=== PATIENT | male | born 1945 | race Caucasian/White ===

== ENCOUNTER 2024-05-06 15:29 | Inpatient (IN) | payer MEDICARE, OTHER ==
[~2024-05-06] VITALS: Ht 177.8 cm; Wt 102.6 kg
[2024-05-06 15:47] VITALS: BP 164/98
[2024-05-06 15:52] VITALS: BP 164/98
[2024-05-06 16:39] LABS: BASO% 0.6 % (0-3); EOS% 6.3 % (0-8); HEMATOCRIT 43.4 % (39.0-50.0); HEMOGLOBIN 14.1 g/dl (14.0-18.0); IMMATURE GRANULOCYTES 0.1 % (0.0-5.0); LYMPH% 31.4 % (15-41); MEAN CORPUSCULAR HGB 29.3 pG CALC (26.0-32.0); MEAN CORPUSCULAR HGB CONC 32.5 g/dL CAL (32.0-36.0); MONO% 9.3 % (2-13); NEUT# 4.32 thou/uL (1.82-7.42); NEUT% 52.3 % (42-76); RED BLOOD COUNT 4.82 mill/uL (4.70-6.10); RED CELL DISTRI WIDTH 13.4 % (11.5-15.5)
[2024-05-06 16:41] LABS: URINE BILIRUBIN - DIPSTICK Negative (NEGATIVE); URINE BLOOD DIPSTICK Negative (NEGATIVE); URINE COLOR Yellow; URINE GLUCOSE - DIPSTICK Negative (NEGATIVE); URINE KETONE Negative (NEGATIVE); URINE LEUK ESTERASE Negative (NEGATIVE); URINE NITRITE - DIPSTICK Negative (Negative); URINE PH 6.5 (4.5-8.0); URINE PROTEIN - DIPSTICK Negative (NEG-TRACE); URINE SPECIFIC GRAVITY 1.015
[2024-05-06] MEDS ORDERED: ACETAMINOPHEN 325 MG/TAB PO PRN (16:45)
[2024-05-06] MEDS ORDERED: oxyCODONE 5MG/ ACETAMINOPHEN 325MG TAB PO PRN (16:45)
[2024-05-06] MEDS ORDERED: LORazepam 0.5 MG/TAB PO PRN (16:45)
[2024-05-06] MEDS ORDERED: SODIUM CHLORIDE 0.9% 10 ML SYR IV PRN (16:45)
[2024-05-06] MEDS ORDERED: Polyethylene Glycol 3350 17 GM/PKT PO PRN (16:45)
[2024-05-06] MEDS ORDERED: ALUM & MAG HYDROX-SIMETHICONE 30 ML PO PRN (16:45)
[2024-05-06] MEDS ORDERED: PROTONIX40 M2 PO (16:47)
[2024-05-06] MEDS ORDERED: TAMSULOSIN0.4 MG PO (16:48)
[2024-05-06] MEDS ORDERED: IRBESARTAN150 M1 PO (16:48)
[2024-05-06] MEDS ORDERED: CRESTOR40 MG PO (16:50)
[2024-05-06] MEDS ORDERED: BAYER ASPIRIN E81 MG PO (16:51)
[2024-05-06 16:59] LABS: ALBUMIN 4.5 g/dL (3.2-5.0); ALKALINE PHOSPHATASE 77 u/l (38-126); ANION GAP 12 (6-22 (CALC)); BILIRUBIN, TOTAL 0.8 mg/dL (0.2-1.3); BUN 20 mg/dL (8-23); BUN/CREATININE RATIO 18 (12-20 (CALC)); CARBON DIOXIDE 29 mmol/l (22-30); CHLORIDE 105 mmol/l (95-108); CREATININE 1.2 mg/dL (0.7-1.3); ESTIMATED GFR 61 ML/MIN (>=90 (CALC)); POTASSIUM 4.9 mmol/l (3.5-5.1); SGOT/AST 36 u/l (19-48); SODIUM 141 mmol/l (137-146); TOTAL PROTEIN 7.2 g/dL (6.3-8.2)
[2024-05-06 17:00] LABS: C-REACTIVE PROTEIN < 0.5 mg/dL (0-0.9)
[2024-05-06] MEDS ORDERED: CEFEPIME HYDROCHLORIDE 2 GM in SODIUM CHLORIDE 0.9% 100 ML IV SCH (18:00)
[2024-05-06 18:25] VITALS: BP 176/90
[2024-05-06 18:26] VITALS: BP 147/94
[2024-05-06] MEDS ORDERED: VANCOMYCIN HCL 1,250 MG in SODIUM CHLORIDE 0.9% 225 ML IV SCH (20:00)
[2024-05-06] MEDS ORDERED: VANCOMYCIN HCL 1 GM in SODIUM CHLORIDE 0.9% 250 ML IV SCH (20:00)
[2024-05-07] VITALS (8 sets, daily range): BP systolic 123–158; BP diastolic 76–89
[2024-05-07 05:32] LABS: ALBUMIN 3.7 g/dL (3.2-5.0); BILIRUBIN, TOTAL 0.7 mg/dL (0.2-1.3); POTASSIUM 4.3 mmol/l (3.5-5.1); TOTAL PROTEIN 6.2 g/dL (6.3-8.2)
[2024-05-07] MEDS ORDERED: CEFEPIME HYDROCHLORIDE 2 GM in SODIUM CHLORIDE 0.9% 100 ML IV SCH (06:00)
[2024-05-07] MEDS ORDERED: PANTOPRAZOLE SODIUM Sesquihydr 40 MG/TAB PO SCH (10:00)
[2024-05-07] MEDS ORDERED: TAMSULOSIN HCL 0.4 MG CAP PO SCH (10:00)
[2024-05-07] MEDS ORDERED: ASPIRIN EC 81 MG/TAB PO SCH (10:00)
[2024-05-07] MEDS ORDERED: LOSARTAN Potassium 50 MG/TAB PO SCH (10:00)
[2024-05-07] MEDS ORDERED: SODIUM CHLORIDE 0.9% 1,000 ML IV PRN (21:20)
[2024-05-08] VITALS (8 sets, daily range): BP systolic 107–161; BP diastolic 71–91
[2024-05-08] MEDS ORDERED: XALATAN 0.005%2.5 ML OU (02:03)
[2024-05-08] MEDS ORDERED: TIMOLOL 0.5%5 ML OU (02:04)
[2024-05-08 07:54] LABS: BASO% 0.6 % (0-3); EOS% 6.5 % (0-8); HEMATOCRIT 39.4 % (39.0-50.0); HEMOGLOBIN 12.7 g/dl (14.0-18.0); IMMATURE GRANULOCYTES 0.2 % (0.0-5.0); MEAN CELL VOLUME 91.6 fL CALC (80.0-100.0); MEAN CORPUSCULAR HGB 29.5 pG CALC (26.0-32.0); MEAN CORPUSCULAR HGB CONC 32.2 g/dL CAL (32.0-36.0); MONO% 10.2 % (2-13); NEUT# 3.68 thou/uL (1.82-7.42); NEUT% 56.5 % (42-76); RED BLOOD COUNT 4.3 mill/uL (4.70-6.10); RED CELL DISTRI WIDTH 13.7 % (11.5-15.5)
[2024-05-08 08:01] LABS: ALBUMIN 3.5 g/dL (3.2-5.0); BILIRUBIN, TOTAL 0.9 mg/dL (0.2-1.3); MAGNESIUM 2.1 mg/dL (1.6-2.3); POTASSIUM 4.2 mmol/l (3.5-5.1); TOTAL PROTEIN 5.9 g/dL (6.3-8.2)
[2024-05-08] MEDS ORDERED: VANCOMYCIN HCL 1,250 MG in SODIUM CHLORIDE 0.9% 225 ML IV SCH (09:00)
[2024-05-08] MEDS ORDERED: TIMOLOL MALEATE 0.5% OU SCH (09:00)
[2024-05-08] MEDS ORDERED: SODIUM CHLORIDE 0.9% 10 ML SYR ONE (10:39)
[2024-05-08] MEDS ORDERED: SODIUM CHLORIDE 0.9% 1,000 ML IV ONE (10:49)
[2024-05-08] MEDS ORDERED: STERILE WATER FOR IRRIGATION 1,000 ML BTL IR ONE (10:55)
[2024-05-08] MEDS ORDERED: BUPIVACAINE HCL PF 0.5% 30 ML VIAL ONE (10:55)
[2024-05-08] MEDS ORDERED: ACETAMINOPHEN 100 ML IV ONE (13:34)
[2024-05-08] MEDS ORDERED: LATANOPROST 2.5 ML BTL OU SCH (21:00)
[2024-05-09] VITALS (9 sets, daily range): BP systolic 106–145; BP diastolic 67–89
[2024-05-09 05:46] LABS: BASO% 0.2 % (0-3); HEMOGLOBIN 12.3 g/dl (14.0-18.0); LYMPH% 16.2 % (15-41); MEAN CELL VOLUME 93.1 fL CALC (80.0-100.0); MEAN CORPUSCULAR HGB 30.1 pG CALC (26.0-32.0); MEAN CORPUSCULAR HGB CONC 32.4 g/dL CAL (32.0-36.0); MONO% 12.1 % (2-13); NEUT# 5.76 thou/uL (1.82-7.42); NEUT% 67.5 % (42-76); RED BLOOD COUNT 4.08 mill/uL (4.70-6.10); RED CELL DISTRI WIDTH 13.5 % (11.5-15.5)
[2024-05-09 06:00] LABS: ALBUMIN 3.4 g/dL (3.2-5.0); CREATININE 0.9 mg/dL (0.7-1.3); MAGNESIUM 1.9 mg/dL (1.6-2.3); POTASSIUM 4.4 mmol/l (3.5-5.1); TOTAL PROTEIN 5.7 g/dL (6.3-8.2)
[2024-05-09] MEDS ORDERED: SODIUM CHLORIDE 0.9% 250 ML IV ONE (08:30)
[2024-05-10 05:25] LABS: BASO% 0.3 % (0-3); EOS% 3.7 % (0-8); HEMATOCRIT 36.2 % (39.0-50.0); HEMOGLOBIN 11.8 g/dl (14.0-18.0); IMMATURE GRANULOCYTES 0.2 % (0.0-5.0); LYMPH% 16.1 % (15-41); MEAN CELL VOLUME 91.2 fL CALC (80.0-100.0); MEAN CORPUSCULAR HGB 29.7 pG CALC (26.0-32.0); MEAN CORPUSCULAR HGB CONC 32.6 g/dL CAL (32.0-36.0); MONO% 15.1 % (2-13); NEUT# 5.7 thou/uL (1.82-7.42); NEUT% 64.6 % (42-76); RED BLOOD COUNT 3.97 mill/uL (4.70-6.10); RED CELL DISTRI WIDTH 13.4 % (11.5-15.5)
[2024-05-10 05:43] LABS: ALBUMIN 3.1 g/dL (3.2-5.0); BILIRUBIN, TOTAL 0.9 mg/dL (0.2-1.3); MAGNESIUM 1.9 mg/dL (1.6-2.3); TOTAL PROTEIN 5.7 g/dL (6.3-8.2)
[2024-05-10 07:51] VITALS: BP 147/79
[2024-05-10 11:03] VITALS: BP 145/85
[2024-05-10 17:02] VITALS: BP 137/79
[2024-05-10 18:43] VITALS: BP 144/72
[2024-05-11 00:04] VITALS: BP 150/80
[2024-05-11 04:21] VITALS: BP 126/79
[2024-05-11 05:21] LABS: BASO% 0.4 % (0-3); EOS% 6.2 % (0-8); HEMATOCRIT 35.6 % (39.0-50.0); HEMOGLOBIN 11.7 g/dl (14.0-18.0); IMMATURE GRANULOCYTES 0.1 % (0.0-5.0); LYMPH% 19.7 % (15-41); MEAN CORPUSCULAR HGB 29.9 pG CALC (26.0-32.0); MEAN CORPUSCULAR HGB CONC 32.9 g/dL CAL (32.0-36.0); NEUT# 4.9 thou/uL (1.82-7.42); NEUT% 60.6 % (42-76); RED BLOOD COUNT 3.91 mill/uL (4.70-6.10); RED CELL DISTRI WIDTH 13.6 % (11.5-15.5)
[2024-05-11 05:29] LABS: CREATININE 0.9 mg/dL (0.7-1.3)
[2024-05-11 05:30] LABS: ALBUMIN 3.1 g/dL (3.2-5.0); BILIRUBIN, TOTAL 0.8 mg/dL (0.2-1.3); POTASSIUM 4.1 mmol/l (3.5-5.1); TOTAL PROTEIN 5.6 g/dL (6.3-8.2)
[2024-05-11 06:44] VITALS: BP 137/75
[2024-05-11 11:27] VITALS: BP 160/79
[2024-05-11 15:19] VITALS: BP 140/73
[2024-05-11 18:52] VITALS: BP 142/84
[2024-05-11] MEDS ORDERED: ENOXAPARIN SODIUM 40 MG/0.4 ML SYR SC SCH (21:00)
[2024-05-12 00:42] VITALS: BP 129/69
[2024-05-12 04:49] VITALS: BP 159/86
[2024-05-12 05:46] LABS: BASO% 0.5 % (0-3); HEMATOCRIT 35.9 % (39.0-50.0); HEMOGLOBIN 11.7 g/dl (14.0-18.0); IMMATURE GRANULOCYTES 0.1 % (0.0-5.0); LYMPH% 20.9 % (15-41); MEAN CELL VOLUME 90.7 fL CALC (80.0-100.0); MEAN CORPUSCULAR HGB 29.5 pG CALC (26.0-32.0); MEAN CORPUSCULAR HGB CONC 32.6 g/dL CAL (32.0-36.0); MONO% 13.7 % (2-13); NEUT# 4.58 thou/uL (1.82-7.42); NEUT% 55.8 % (42-76); RED BLOOD COUNT 3.96 mill/uL (4.70-6.10); RED CELL DISTRI WIDTH 13.6 % (11.5-15.5)
[2024-05-12 06:00] LABS: ALBUMIN 3.3 g/dL (3.2-5.0); BILIRUBIN, TOTAL 0.8 mg/dL (0.2-1.3); CREATININE 0.9 mg/dL (0.7-1.3); POTASSIUM 4.1 mmol/l (3.5-5.1); TOTAL PROTEIN 5.8 g/dL (6.3-8.2)
[2024-05-12 06:34] VITALS: BP 128/71
[2024-05-12 18:22] VITALS: BP 134/87
[2024-05-12 23:58] VITALS: BP 106/73
[2024-05-13 04:01] VITALS: BP 127/76
[2024-05-13 07:03] VITALS: BP 118/72
[2024-05-13] MEDS ORDERED: VANCOMYCIN1250 MG/25 IV (08:40)
[2024-05-13] MEDS ORDERED: CEFTRIAXONE2 GM IV (08:40)
[2024-05-13] MEDS ORDERED: cefTRIAXone SODIUM 2 GM in SODIUM CHLORIDE 0.9% 100 ML IV SCH ×2 (09:30→12:00)
[2024-05-13 10:58] VITALS: BP 146/85
[2024-05-13 14:40] VITALS: BP 143/79
[2024-05-13 18:57] VITALS: BP 100/67
[2024-05-13 23:20] VITALS: BP 126/80
[2024-05-14 03:25] VITALS: BP 143/83
[2024-05-14 05:40] LABS: ALBUMIN 3.2 g/dL (3.2-5.0); BILIRUBIN, TOTAL 0.8 mg/dL (0.2-1.3); POTASSIUM 3.9 mmol/l (3.5-5.1); TOTAL PROTEIN 5.8 g/dL (6.3-8.2)
[2024-05-14 05:47] LABS: BASO% 0.6 % (0-3); EOS% 10.7 % (0-8); HEMATOCRIT 35.7 % (39.0-50.0); HEMOGLOBIN 11.7 g/dl (14.0-18.0); IMMATURE GRANULOCYTES 0.2 % (0.0-5.0); LYMPH% 25.6 % (15-41); MEAN CELL VOLUME 91.5 fL CALC (80.0-100.0); MEAN CORPUSCULAR HGB CONC 32.8 g/dL CAL (32.0-36.0); MONO% 13.4 % (2-13); NEUT# 3.29 thou/uL (1.82-7.42); NEUT% 49.5 % (42-76); RED BLOOD COUNT 3.9 mill/uL (4.70-6.10); RED CELL DISTRI WIDTH 13.2 % (11.5-15.5)
[2024-05-14 07:23] VITALS: BP 142/81
[2024-05-14 10:31] VITALS: BP 102/66
== END 2024-05-14 11:45 | disposition home health service (06) | DRG 464 ==
LOC: MS2 15:29
PROVIDERS: Internal Medicine; Nurse Practitioner Family; ADMIT Internal Medicine; ATTEND Internal Medicine
PROC: 0QBL0ZZ Excision of Right Tarsal, Open Approach (ICD-10-PCS; principal; 2024-05-08)
PROC: 0JBQ0ZZ Excision of Right Foot Subcutaneous Tissue and Fascia, Open Approach (ICD-10-PCS; 2024-05-08)
PROC: 3E0V329 Introduction of Other Anti-infective into Bones, Percutaneous Approach (ICD-10-PCS; 2024-05-08)
PROC: 02HV33Z Insertion of Infusion Device into Superior Vena Cava, Percutaneous Approach (ICD-10-PCS; 2024-05-13)
PROC: B518ZZA Fluoroscopy of Superior Vena Cava, Guidance (ICD-10-PCS; 2024-05-13)
DX: M86.171 Other acute osteomyelitis, right ankle and foot (principal); L03.115 Cellulitis of right lower limb; S91.331S Puncture wound without foreign body, right foot, sequela; M25.774 Osteophyte, right foot; I10 Essential (primary) hypertension; J44.9 Chronic obstructive pulmonary disease, unspecified; E78.5 Hyperlipidemia, unspecified; N40.0 Benign prostatic hyperplasia without lower urinary tract symptoms; F41.9 Anxiety disorder, unspecified; W45.8XXS Other foreign body or object entering through skin, sequela; Z95.2 Presence of prosthetic heart valve; Z20.822 Contact with and (suspected) exposure to COVID-19
CPT/HCPCS: J0131; J0692; J0696; J1650; J3370